=== PATIENT | female | born 1955 | race Caucasian/White ===

== ENCOUNTER 2022-06-08 14:52 | Emergency (ER) | payer MEDICARE, OTHER ==
[~2022-06-08 14:52] MED LIST: Iopamidol 370 76% 100 ML VIAL ONE
[2022-06-08] MEDS ORDERED: Ondansetron PF 4 MG/2 ML Vial ONE (15:35)
[2022-06-08] MEDS ORDERED: Labetalol HCl 100 MG/20 ML VIAL ONE (15:35)
[2022-06-08 16:01] LABS: Lipase 28 U/L (8-78); Magnesium 1.9 mg/dL (1.6-2.6)
[2022-06-08 16:08] LABS: Band 4 % (5-11); Hemoglobin 15.2 g/dL (12.0-16.0); Lymphocytes 7 % (21-51); MDiff Complete? YES; Mean Corpuscular HGB CONC 33.9 g/dL (32.0-36.0); Mean Corpuscular Hemoglobin 30.6 pg (27.0-31.0); Mean Corpuscular Volume 90.4 fl (78.0-98.0); Mean Platelet Volume 6.7 fL (7.4-10.4); Monocytes 13 % (0-10); Neutrophil 74 % (42-75); Platelet Count 358 10x3/uL (130-400); RBC Distribution Width 12.2 % (11.5-14.5); Reactive Lymphocytes 2 % (0-10); Red Blood Cell (RBC) Count 4.96 mill/uL (4.20-5.40); White Blood Cell (WBC) Count 17.1 10x3/uL (4.8-10.8)
[2022-06-08 16:27] LABS: Bilirubin Large (Negative); Blood, Urine Negative (Negative); Clarity Cloudy (Clear); Glucose, Urine (Dipstick) Negative (Negative); Ketone, Urine 40 mg/dL (Negative); Leukocyte Negative (Negative); Nitrite Negative (Negative); Protein, Urine (Dipstick) > or equal to 300 mg/dL (Neg-Trace); pH, Urine 5.5 (5.0-9.0)
[2022-06-08 16:28] LABS: Specific Gravity, Urine 1.026 (1.002-1.036)
[2022-06-08 16:31] LABS: Bacteria/HPF 2+ HPF (None Seen); Mucous/LPF 2+ LPF (<2+); RBC/HPF 0-3 HPF (0-3)
[2022-06-08 16:33] LABS: Amphetamine Not Detected (NotDetected); Barbiturates Screen Not Detected (NotDetected); Benzodiazepine Screen Not Detected (NotDetected); Cocaine Metabolite Screen Not Detected (NotDetected); Methadone Not Detected (NotDetected); Methamphetamine Detected (NotDetected); Opiate Screen Not Detected (NotDetected); Oxycodone Screen Not Detected (NotDetected); Phencyclidine (PCP) Not Detected (NotDetected); THC/Cannabinoid Screen Detected (NotDetected); Tricyclic Screen Not Detected (NotDetected)
[2022-06-08 16:34] LABS: Medtox Control Line Valid? VALID (VALID)
[2022-06-08 17:12] LABS: CKMB 1.6 ng/mL (0-6.6)
[2022-06-08 17:12] LABS: SARS-CoV-2 NAA Rapid Test Not Detected (NotDetected)
[2022-06-08 17:26] LABS: Carbon Dioxide 26 mmol/L (23-31); Chloride 93 mmol/L (98-107); Potassium 3.6 mmol/L (3.5-5.1); Sodium 141 mmol/L (136-145)
[2022-06-08 17:27] LABS: AST (SGOT) 25 U/L (5-34); Albumin 4.2 g/dL (3.4-4.8); Alkaline Phosphatase 111 U/L (40-110); Anion Gap 26 mmol/L (10-20); BUN (Urea Nitrogen) 31 mg/dL (9.8-20.1); Bilirubin, Total 0.4 mg/dL (0.2-1.2); Calc. Creatinine Clearance 0 mL/min (70-130); Calcium 9.4 mg/dL (7.6-10.4); Estimated GFR 37; Globulin 3.4 g/dL (2.4-3.5); Glucose 118 mg/dL (80-115); Protein, Total 7.6 g/dL (5.8-8.1)
[2022-06-08 17:28] LABS: ALT (SGPT) 29 U/L (8-55)
[2022-06-08] MEDS ORDERED: cefTRIAXone\\ROCEPHIN 1 GM VIAL ONE (19:16)
[2022-06-08] MEDS ORDERED: Sodium Chloride 0.9% 100 ML ONE (19:16)
== END 2022-06-08 21:16 | disposition short-term general hospital (02) ==
LOC: BURERS 14:52
DX: C16.9 Malignant neoplasm of stomach, unspecified (principal); E86.0 Dehydration; Z20.822 Contact with and (suspected) exposure to COVID-19
CPT/HCPCS: 71045; 71275; 74177; 80053; 80306; 82553; 83690; 83735; 84484; 85025; 85379; 87040; 87081; 87430; 87804 ×2; 93005; U0002; 36415; 81003; 81015; 96361; 96365; 96375; J0696; J2405; J3490; Q9967

== ENCOUNTER 2023-06-30 14:20 | Inpatient (IN) | payer MEDICARE, OTHER ==
[2023-06-30] MEDS ORDERED: Polyethylene Glycol 3350 17 GM Packet PO PRN (21:20)
[2023-06-30] MEDS ORDERED: Prochlorperazine Maleate 5 MG TAB PO PRN (21:20)
[2023-06-30] MEDS ORDERED: Bisacodyl 10 MG SUPP PR PRN (21:26)
[2023-06-30] MEDS ORDERED: Bisacodyl 5 MG TAB PO PRN (21:26)
[2023-06-30] MEDS ORDERED: Senokot S 8.6-50 MG TAB PO PRN (21:26)
[2023-06-30] MEDS: Acetaminophen 325 MG TAB PO PRN (22:44)
[2023-06-30] MEDS: Mirtazapine 15 MG TAB PO SCH (22:45)
[2023-06-30] MEDS: traZODone HCl 50 MG TAB PO SCH (22:45)
[2023-06-30] MEDS: Metoprolol Tartrate 25 MG TAB PO SCH (22:45)
[2023-07-01] MEDS: Amlodipine 5 MG TAB PO SCH (09:25)
[2023-07-01] MEDS: Multivit, Therapeutic 1 TAB PO SCH (09:26)
[2023-07-01] MEDS: Metoprolol Tartrate 25 MG TAB PO SCH (09:26)
[2023-07-01] MEDS: Escitalopram Oxalate 10 mg Tablet PO SCH (09:26)
[2023-07-01] MEDS: Glecaprevir/Pibrentasvir [Mavyret 100-40 Mg Tablet] PO SCH (09:27)
[2023-07-01] MEDS: Ergocalciferol 1.25 MG(50,000 UNITS) CAP PO SCH (09:27)
[2023-07-01] MEDS: Anastrozole 1 MG TAB PO SCH (09:27)
[2023-07-01] MEDS: Mirtazapine 15 MG TAB PO SCH (21:15)
[2023-07-01] MEDS: traZODone HCl 50 MG TAB PO SCH (21:16)
[2023-07-02] MEDS: Enoxaparin 30 MG (0.3 mL) SYRINGE SC SCH (09:36)
[2023-07-02 12:38] VITALS: BMI 20.5
[2023-07-03 05:01] LABS: Hematocrit 27.8 % (36.0-47.0); Hemoglobin 9.5 g/dL (12.0-16.0); Platelet Count 166 10x3/uL (130-400)
[2023-07-03] MEDS: Loratadine 10 MG TAB PO PRN (09:28)
[2023-07-05] MEDS: Acetaminophen/Codeine 30-300mg Tablet PO PRN (14:54)
[2023-07-07] MEDS: hydrALAZINE 25 MG TAB PO SCH (09:00)
[2023-07-09 05:51] LABS: #Basophils 0.1 thou/uL (0.0-0.2); #Eosinphils 0.2 thou/uL (0.0-0.7); #Lymphocytes 1.9 thou/uL (1.20-3.40); #Monocytes 0.6 thou/uL (0.11-0.59); #Neutrophils 3.3 thou/uL (1.40-6.50); %Basophils 1.4 % (0.0-1.0); %Eosinophils 3.6 % (0.0-10.0); %Lymphocytes 30.5 % (21.0-51.0); %Monocytes 10.5 % (0.0-10.0); Hematocrit 29.4 % (36.0-47.0); Hemoglobin 9.9 g/dL (12.0-16.0); Mean Corpuscular HGB CONC 33.7 g/dL (32.0-36.0); Mean Corpuscular Hemoglobin 32.8 pg (27.0-31.0); Mean Corpuscular Volume 97.1 fl (78.0-98.0); Mean Platelet Volume 5.9 fL (7.4-10.4); Platelet Count 232 10x3/uL (130-400); RBC Distribution Width 14.3 % (11.5-14.5); Red Blood Cell (RBC) Count 3.02 mill/uL (4.20-5.40); White Blood Cell (WBC) Count 6.1 10x3/uL (4.8-10.8)
[2023-07-11] MEDS: Potassium Chloride 20 MEQ TAB PO SCH (09:31)
[2023-07-11 09:33] LABS: Anion Gap 13 mmol/L (10-20); BUN (Urea Nitrogen) 35 mg/dL (9.8-20.1); Calc. Creatinine Clearance 38 mL/min (70-130); Calcium 9.8 mg/dL (7.8-10.44); Carbon Dioxide 26 mmol/L (23-31); Chloride 102 mmol/L (98-107); Estimated GFR 63; Glucose 97 mg/dL (80-115); Potassium 3.4 mmol/L (3.5-5.1); Sodium 138 mmol/L (136-145)
[2023-07-13] MEDS: Ergocalciferol 1.25 MG(50,000 UNITS) CAP PO SCH (08:38)
[2023-07-15] MEDS: Acetaminophen 325 MG TAB PO PRN (20:24)
[2023-07-16 05:36] VITALS: TEMP 98
[2023-07-16 10:05] VITALS: BP 170/70
== END 2023-07-16 12:45 | disposition home or self-care (01) | DRG 948 ==
LOC: BURMED 16:25
PROVIDERS: ADMIT Family Medicine; ATTEND Family Medicine
DX: R53.81 Other malaise (principal); S72.002D Fracture of unspecified part of neck of left femur, subsequent encounter for closed fracture with routine healing; F43.11 Post-traumatic stress disorder, acute; B19.20 Unspecified viral hepatitis C without hepatic coma; I10 Essential (primary) hypertension; Z98.890 Other specified postprocedural states
CPT/HCPCS: 36415; 80048; 82565; 85014; 85018; 85025; 85049; J1650

== ENCOUNTER 2024-01-22 06:24 | Emergency (ER) | payer MEDICARE, OTHER ==
[2024-01-22] MEDS ORDERED: Ipratropium/Albuterol 3 ML NEB ONE (06:59)
[2024-01-22 07:09] LABS: #Monocytes 0.5 thou/uL (0.11-0.59); #Neutrophils 4.2 thou/uL (1.40-6.50); %Basophils 0.6 % (0.0-1.0); %Eosinophils 0.6 % (0.0-10.0); %Lymphocytes 17.4 % (21.0-51.0); %Monocytes 8.2 % (0.0-10.0); %Neutrophils 73.2 % (42.0-75.0); Hematocrit 30.4 % (36.0-47.0); Hemoglobin 10.7 g/dL (12.0-16.0); Mean Corpuscular Hemoglobin 33.4 pg (27.0-31.0); Mean Corpuscular Volume 95.3 fl (78.0-98.0); Mean Platelet Volume 5.2 fL (7.4-10.4); Platelet Count 171 10x3/uL (130-400); Red Blood Cell (RBC) Count 3.19 mill/uL (4.20-5.40); White Blood Cell (WBC) Count 5.8 10x3/uL (4.8-10.8)
[2024-01-22 07:32] LABS: ALT (SGPT) 19 U/L (8-55); AST (SGOT) 26 U/L (5-34); Albumin 3.6 g/dL (3.4-4.8); Alkaline Phosphatase 111 U/L (40-110); Anion Gap 16 mmol/L (10-20); BUN (Urea Nitrogen) 10 mg/dL (9.8-20.1); Bilirubin, Total 0.8 mg/dL (0.2-1.2); Calc. Creatinine Clearance 0 mL/min (70-130); Calcium 9.3 mg/dL (7.8-10.44); Carbon Dioxide 24 mmol/L (23-31); Chloride 100 mmol/L (98-107); Estimated GFR 64; Globulin 3.2 g/dL (2.4-3.5); Glucose 118 mg/dL (80-115); Potassium 3.4 mmol/L (3.5-5.1); Protein, Total 6.8 g/dL (5.8-8.1); Sodium 137 mmol/L (136-145)
[2024-01-22 08:12] LABS: Bilirubin Negative (Negative); Blood, Urine Trace (Negative); Clarity Slightly Cloudy (Clear); Glucose, Urine (Dipstick) Negative (Negative); Ketone, Urine Negative (Negative); Leukocyte Large (Negative); Nitrite Positive (Negative); Protein, Urine (Dipstick) 30 mg/dL (Neg-Trace); Specific Gravity, Urine 1.015 (1.005-1.030); Urobilinogen 0.2 mg/dL (Less than 2)
[2024-01-22 08:18] LABS: CAUTI Indications for Culture Dysuria,urgency,freq
[2024-01-22 08:19] LABS: Bacteria/HPF 4+ HPF (None Seen); Urine Culture Reflex Yes Yes
[2024-01-22] MEDS ORDERED: Sodium Chloride 0.9% 100 ML ONE (08:48)
[2024-01-22] MEDS ORDERED: cefTRIAXone (ROCEPHIN) 1 GM VIAL ONE (08:49)
[2024-01-22 09:08] LABS: SARS-CoV-2 E Target Negative; SARS-CoV-2 N2 Target Negative; SARS-CoV-2 NAA Rapid Test Not Detected (NotDetected); SARS-CoV-2 RdRP gene Negative
[2024-01-22 09:59] LABS: Troponin I 0.085 ng/mL (< 0.028)
[2024-01-22] MEDS ORDERED: Nitroglycerin 2% Ointment 1 INCH/1 GM Packet ONE (10:19)
[2024-01-22] MEDS ORDERED: Furosemide 40 MG (4 mL) VIAL ONE (10:19)
[2024-01-22] MEDS ORDERED: Aspirin Chewable 81 MG TAB ONE (10:19)
[2024-01-22] MEDS ORDERED: Iopamidol 370 76% 100 ML VIAL ONE (16:00)
== END 2024-01-22 13:19 | disposition short-term general hospital (02) ==
LOC: BURERS 06:24
DX: J90 Pleural effusion, not elsewhere classified (principal); I11.0 Hypertensive heart disease with heart failure; I50.9 Heart failure, unspecified; N39.0 Urinary tract infection, site not specified; Z87.891 Personal history of nicotine dependence
CPT/HCPCS: 71045; 71275; 80053; 81001; 83605; 83880; 84484; 85025; 85379; 87077; 87086; 87186; 93005; 94640; 94760; 96365; 96375; 99285; J0696; J1940; Q9967; U0002; J7620

== ENCOUNTER 2025-04-04 13:24 | Outpatient (CLI) | payer MEDICARE, OTHER | END 2025-04-04 13:25 | disposition home or self-care (01) | LOC: BURRAD 13:24 | PROVIDERS: ATTEND Family Medicine | DX: M54.50 Low back pain, unspecified (principal); M54.6 Pain in thoracic spine; M47.816 Spondylosis without myelopathy or radiculopathy, lumbar region; M43.9 Deforming dorsopathy, unspecified; M47.814 Spondylosis without myelopathy or radiculopathy, thoracic region | CPT/HCPCS: 72072; 72100 ==